=== PATIENT | female | born 1950 | race Two or more races ===

== ENCOUNTER → 2017-01-14 | Outpatient (CLI) | payer MEDICARE | END | disposition home or self-care (01) | LOC: CFH 10:35 | PROVIDERS: ATTEND Internal Medicine | DX: R60.9 Edema, unspecified (principal); M79.605 Pain in left leg; M79.604 Pain in right leg | CPT/HCPCS: 93970 ==

== ENCOUNTER → 2018-03-01 | Outpatient (CLI) | payer MEDICARE ==
[~2018-03-01] MED LIST: ASPI-496 PO; ATEN25TA PO; INSU100C5 SQ-INSULIN; INSU100I32 SQ; LIRA0.6P SQ-INSULIN; LISI-167 PO; OMEG-14 PO
== END | disposition home or self-care (01) ==
LOC: STAR 14:50
PROVIDERS: ATTEND Surgery
DX: Z02.9 Encounter for administrative examinations, unspecified (principal); Z01.818 Encounter for other preprocedural examination
CPT/HCPCS: 36415; 80048; 85025

== ENCOUNTER 2018-03-08 06:34 | Day surgery (SDC) | payer MEDICARE ==
[2018-03-01 15:43] LABS: BASOPHILS # (AUTO) 0.01 x10^3/uL (0-0.1); BASOPHILS % (AUTO) 0 % (0-1); EOSINOPHILS # (AUTO) 0.21 x10^3/uL (0-0.4); EOSINOPHILS % (AUTO) 3 % (1-7); LYMPHOCYTES # (AUTO) 1.32 x10^3/uL (1-3.4); LYMPHOCYTES % (AUTO) 21 % (22-44); MD NO; MEAN CORPUSCULAR HEMOGLOBIN 31.6 pg (27.0-34.8); MEAN CORPUSCULAR HGB CONC 33.6 g/dL (32.4-35.8); MEAN CORPUSCULAR VOLUME 94.1 fL (80-100); MONOCYTES # (AUTO) 0.44 x10^3/uL (0.2-0.8); MONOCYTES % (AUTO) 7 % (2-9); NEUTROPHILS # (AUTO) 4.29 x10^3/uL (1.8-6.8); NEUTROPHILS % (AUTO) 68 % (42-75); PLATELET COUNT 249 x10^3/uL (130-400); RED BLOOD COUNT 3.87 x10^6/uL (3.82-5.3); RED CELL DISTRIBUTION WIDTH 14.3 % (9.6-15.2)
[2018-03-01 15:48] LABS: ANION GAP 9 mmol/L (5-15); CALCIUM 9.6 mg/dL (8.5-10.1); CHLORIDE 109 mmol/L (98-107); CREATININE 1.64 mg/dL (0.55-1.02)
[~2018-03-08] VITALS: Ht 165.1 cm; Wt 89.3 kg
[~2018-03-08 06:34] MED LIST changes: -ASPI-496 PO; -OMEG-14 PO
[2018-03-08] MEDS ORDERED: LIDOCAINE-MPF 1%, 5ML ONE (07:09)
[2018-03-08] MEDS ORDERED: LACTATED RINGERS 1,000 ML IV SCH (07:53)
[2018-03-08] MEDS ORDERED: OMEG-14 PO (07:58)
[2018-03-08] MEDS ORDERED: ASPI-496 PO (07:58)
[2018-03-08] MEDS ORDERED: SODIUM CHLORIDE 0.9% 1,000 ML IV SCH ×2 (08:02→10:35)
[2018-03-08 08:03] VITALS: BP 126/67
[2018-03-08] MEDS ORDERED: PROTAMINE SULFATE 10 MG/ML, 25ML ONE (09:40)
[2018-03-08] MEDS ORDERED: FLUMAZENIL 0.1 MG/1 ML, 5ML ONE (09:40)
[2018-03-08] MEDS ORDERED: MIDAZOLAM 1 MG/ML, 5ML ONE (09:40)
[2018-03-08] MEDS ORDERED: NALOXONE 1 MG/ML, 2ML ONE (09:40)
[2018-03-08] MEDS ORDERED: FENTANYL PF 100 MCG/2ML ONE (09:40)
[2018-03-08] MEDS ORDERED: HEPARIN 1,000 UNITS/ML, 10ML ONE (09:40)
[2018-03-08] MEDS ORDERED: VISIPAQUE 270 MG/ML, 50ML BOTTLE ONE (11:00)
== END 2018-03-08 13:35 | disposition home or self-care (01) ==
LOC: OUT 06:34
PROVIDERS: ATTEND Surgery
DX: I70.8 Atherosclerosis of other arteries (principal); E78.5 Hyperlipidemia, unspecified; E11.9 Type 2 diabetes mellitus without complications; I10 Essential (primary) hypertension; Z98.890 Other specified postprocedural states; Z86.73 Personal history of transient ischemic attack (TIA), and cerebral infarction without residual deficits; Z87.891 Personal history of nicotine dependence; Z79.82 Long term (current) use of aspirin; Z79.899 Other long term (current) drug therapy
CPT/HCPCS: 36215; 75710; 82962; C1751; C1769; C1894; J1644; J2250; J2310; J2720; J3010; Q9966; 36415; 80048; 85025

== ENCOUNTER 2018-05-12 13:23 | Emergency (ER) | payer MEDICARE ==
[~2018-05-12] VITALS: Ht 165.1 cm; Wt 74.2 kg
[~2018-05-12 13:23] MED LIST changes: +ASPI-496 PO; +OMEG-14 PO
[2018-05-12 13:26] VITALS: BP 138/75
[2018-05-12] MEDS ORDERED: KETOROLAC 30 MG/1 ML IM/IV ONE (14:00)
[2018-05-12] MEDS ORDERED: METHOCARBAMOL 750 MG TABLET PO ONE (14:00)
[2018-05-12] MEDS ORDERED: LIDODERM 5% PATCH TD ONE (14:00)
[2018-05-12] MEDS ORDERED: KETOROLAC 30 MG/1 ML ONE (14:15)
[2018-05-12] MEDS ORDERED: METHOCARBAMOL 750 MG TABLET ONE (14:15)
== END 2018-05-12 14:43 | disposition home or self-care (01) ==
LOC: ED 14:32
DX: M51.36 Other intervertebral disc degeneration, lumbar region (principal); M54.41 Lumbago with sciatica, right side; M46.1 Sacroiliitis, not elsewhere classified; I10 Essential (primary) hypertension; E11.9 Type 2 diabetes mellitus without complications
CPT/HCPCS: 72110; 96372; 99283; J1885

== ENCOUNTER → 2018-08-01 | Outpatient (CLI) | payer MEDICARE | END | disposition home or self-care (01) | LOC: CFH 11:54 | PROVIDERS: ATTEND Physician Assistant Surgical | DX: M47.816 Spondylosis without myelopathy or radiculopathy, lumbar region (principal); M47.814 Spondylosis without myelopathy or radiculopathy, thoracic region; M48.061 Spinal stenosis, lumbar region without neurogenic claudication; M41.25 Other idiopathic scoliosis, thoracolumbar region | CPT/HCPCS: 72128; 72131 ==

== ENCOUNTER → 2020-04-23 | Outpatient (CLI) | payer MEDICARE | END | disposition home or self-care (01) | LOC: RAD 12:25 | PROVIDERS: ATTEND Internal Medicine | DX: M51.17 Intervertebral disc disorders with radiculopathy, lumbosacral region (principal); M41.86 Other forms of scoliosis, lumbar region; M25.78 Osteophyte, vertebrae; M48.07 Spinal stenosis, lumbosacral region | CPT/HCPCS: 72148 ==

== ENCOUNTER → 2020-11-06 | Outpatient (CLI) | payer MEDICARE ==
[~2020-11-06] MED LIST changes: +CHOL10003 PO; +DAPA10TA PO; +FISH1CAP PO; +GLIM2TAB7 PO; +SEMA1PEN3 SC; +SIMV5TAB14 PO
[2020-11-06 12:20] LABS: BASOPHILS % (AUTO) 1 % (0-1); EOSINOPHILS % (AUTO) 5 % (1-7); LYMPHOCYTES % (AUTO) 20 % (22-44); MEAN CORPUSCULAR HGB CONC 33.2 g/dL (32.4-35.8); MEAN PLATELET VOLUME 9.2 fL (7.4-10.4); MONOCYTES % (AUTO) 8 % (2-9); NEUTROPHILS % (AUTO) 67 % (42-75); PLATELET COUNT 239 x10^3/uL (130-400); RED CELL DISTRIBUTION WIDTH 14.5 % (9.6-15.2)
[2020-11-06 12:20] LABS: MICROSCOPIC NOT IND
[2020-11-06 12:30] LABS: INTERNATIONAL NORMALIZED RATIO 0.96 (0.93-1.1); PROTHROMBIN TIME 10.3 Seconds (9.6-11.5)
[2020-11-06 12:31] LABS: ALBUMIN 3.5 g/dL (3.4-5.0); ANION GAP 8 mmol/L (5-15); CALCIUM 9.7 mg/dL (8.5-10.1); CHLORIDE 110 mmol/L (98-107)
[2020-11-06 12:35] LABS: ALANINE AMINOTRANSFERASE 27 U/L (12-78); ALKALINE PHOSPHATASE 67 U/L (45-117); BILIRUBIN,TOTAL 0.3 mg/dL (0.2-1.0); CREATININE 1.43 mg/dL (0.55-1.02); TOTAL PROTEIN 7.9 g/dL (6.4-8.2)
== END | disposition home or self-care (01) ==
LOC: STAR 10:53
PROVIDERS: ATTEND Neurological Surgery
DX: Z01.818 Encounter for other preprocedural examination (principal); M48.062 Spinal stenosis, lumbar region with neurogenic claudication; I49.3 Ventricular premature depolarization; Z20.822 Contact with and (suspected) exposure to COVID-19
CPT/HCPCS: 36415; 71046; 80053; 81003; 83036; 85025; 85610; 85730; 93005; U0003; U0005

== ENCOUNTER 2021-01-16 10:08 | Outpatient (CLI) | payer MEDICARE | END 2021-01-16 23:59 | disposition home or self-care (01) | LOC: WOUND 10:08 | PROVIDERS: ATTEND Internal Medicine | DX: T81.31XA Disruption of external operation (surgical) wound, not elsewhere classified, initial encounter (principal); E11.40 Type 2 diabetes mellitus with diabetic neuropathy, unspecified; E11.22 Type 2 diabetes mellitus with diabetic chronic kidney disease; I12.9 Hypertensive chronic kidney disease with stage 1 through stage 4 chronic kidney disease, or unspecified chronic kidney disease; N18.9 Chronic kidney disease, unspecified; E78.5 Hyperlipidemia, unspecified; M48.062 Spinal stenosis, lumbar region with neurogenic claudication; Z86.73 Personal history of transient ischemic attack (TIA), and cerebral infarction without residual deficits; Z87.891 Personal history of nicotine dependence; Z98.42 Cataract extraction status, left eye; Y92.238 Other place in hospital as the place of occurrence of the external cause; Y83.8 Other surgical procedures as the cause of abnormal reaction of the patient, or of later complication, without mention of misadventure at the time of the procedure | CPT/HCPCS: 11042; G0463 ==

== ENCOUNTER 2021-01-30 11:09 | Outpatient (CLI) | payer MEDICARE | END 2021-01-30 23:59 | disposition home or self-care (01) | LOC: WOUND 11:09 | PROVIDERS: ATTEND Internal Medicine | DX: T81.31XD Disruption of external operation (surgical) wound, not elsewhere classified, subsequent encounter (principal); E11.40 Type 2 diabetes mellitus with diabetic neuropathy, unspecified; I12.9 Hypertensive chronic kidney disease with stage 1 through stage 4 chronic kidney disease, or unspecified chronic kidney disease; E11.22 Type 2 diabetes mellitus with diabetic chronic kidney disease; N18.9 Chronic kidney disease, unspecified; E78.5 Hyperlipidemia, unspecified; Z86.73 Personal history of transient ischemic attack (TIA), and cerebral infarction without residual deficits; Z87.891 Personal history of nicotine dependence; Z98.42 Cataract extraction status, left eye; Y83.8 Other surgical procedures as the cause of abnormal reaction of the patient, or of later complication, without mention of misadventure at the time of the procedure | CPT/HCPCS: G0463 ==